=== PATIENT | male | born 1960 | race Caucasian/White ===

== ENCOUNTER 2020-06-04 01:42 | Outpatient (CLI) | payer BC, SELFPAY ==
[2020-06-04 10:15] LABS: Calculated LDL 123 mg/dL (<100); Cholesterol 202 mg/dL (<200); Glucose 91 mg/dL (74-106); HDL Cholesterol 41 mg/dL (40-60); Triglyceride 190 mg/dL (<150)
== END 2020-06-04 02:02 ==
PROVIDERS: PCP Family Medicine; Visit Provider Family Medicine
DX: E78.5 Hyperlipidemia, unspecified (principal)
CPT/HCPCS: 36415; 80061; 82947

== ENCOUNTER 2021-06-24 04:09 | Outpatient (CLI) | payer BC, SELFPAY ==
[2021-06-24 12:35] LABS: Calculated LDL 80 mg/dL (<100); Cholesterol 156 mg/dL (<200); HDL Cholesterol 41 mg/dL (40-60); Triglyceride 176 mg/dL (<150)
[2021-06-24 12:36] LABS: Hemoglobin A1C 5.2 % (<5.7)
[2021-06-24 21:51] LABS: PSA, Screening 1.7 ng/mL (0.0-4.5)
== END 2021-06-24 04:10 | disposition home or self-care (01) ==
LOC: LOS 04:09
PROVIDERS: PCP Nurse Practitioner Family; Visit Provider Nurse Practitioner Family
DX: E78.5 Hyperlipidemia, unspecified (principal); R35.0 Frequency of micturition; Z12.5 Encounter for screening for malignant neoplasm of prostate; Z13.1 Encounter for screening for diabetes mellitus
CPT/HCPCS: 36415; 80061; 84153; 83036

== ENCOUNTER 2022-07-04 03:59 | Outpatient (CLI) | payer BC, SELFPAY ==
[2022-07-04 13:12] LABS: Calculated LDL 95 mg/dL (<100); Cholesterol 190 mg/dL (<200); HDL Cholesterol 42 mg/dL (40-60); Triglyceride 268 mg/dL (<150)
== END 2022-07-04 04:00 | disposition home or self-care (01) ==
LOC: LOS 03:59
PROVIDERS: PCP Nurse Practitioner Family; Visit Provider Nurse Practitioner Family
DX: E78.5 Hyperlipidemia, unspecified (principal)
CPT/HCPCS: 36415; 80061

== ENCOUNTER 2023-07-13 08:28 | Outpatient (CLI) | payer BC, SELFPAY ==
[2023-07-13 10:13] LABS: Calculated LDL 107 mg/dL (<100); Cholesterol 188 mg/dL (<200); HDL Cholesterol 46 mg/dL (40-60); Triglyceride 179 mg/dL (<150)
== END 2023-07-13 08:29 | disposition home or self-care (01) ==
LOC: LBO 08:29
PROVIDERS: PCP Family Medicine; Visit Provider Nurse Practitioner Family
DX: E78.5 Hyperlipidemia, unspecified (principal)
CPT/HCPCS: 36415; 80061

== ENCOUNTER 2024-07-11 10:22 | Outpatient (CLI) | payer BC, SELFPAY ==
[2024-07-11 09:06] LABS: BUN 17 mg/dL (7-18); CREATININE 1.1 mg/dL (0.70-1.30); Calcium 8.5 mg/dL (8.5-10.1); Calculated LDL 99 mg/dL (<100); Chloride 103 mmol/L (98-107); Cholesterol 170 mg/dL (<200); Estimated GFR 75.43 (mL/min/1.73m2); Glucose 102 mg/dL (74-106); HDL Cholesterol 48 mg/dL (40-60); Potassium 4.2 mmol/L (3.5-5.1); Sodium 139 mmol/L (136-145); Triglyceride 119 mg/dL (<150)
[2024-07-11 23:18] LABS: PSA, Screening 4.8 ng/mL (<=4.5)
[2024-07-11 23:58] LABS: Hepatitis C Ab w Rflx HCV PCR Negative (Negative)
[2024-07-12 09:23] LABS: HIV-1/2 Ag & Ab Screen Negative (Negative)
== END 2024-07-11 10:23 | disposition home or self-care (01) ==
LOC: LBO 10:22
PROVIDERS: PCP Family Medicine; Visit Provider Family Medicine
DX: Z11.4 Encounter for screening for human immunodeficiency virus [HIV] (principal); Z12.5 Encounter for screening for malignant neoplasm of prostate; Z11.59 Encounter for screening for other viral diseases; Z13.6 Encounter for screening for cardiovascular disorders; E78.2 Mixed hyperlipidemia; Z13.1 Encounter for screening for diabetes mellitus
CPT/HCPCS: 36415; 80048; 80061; 84153; 86803; 87389

== ENCOUNTER 2024-12-19 02:01 | Outpatient (CLI) | payer BC, SELFPAY ==
[2024-12-19 08:33] LABS: Abs Immature Grans 0.01 10^3/uL (0.0-0.06); Absolute Basophil Count 0.03 10^3/uL (0.0-0.2); Absolute Eosinophil Count 0.07 10^3/uL (0.0-0.7); Absolute Lymphocyte Count 1.54 10^3/uL (1.2-3.4); Absolute Monocyte Count 0.32 10^3/uL (0.1-0.8); Absolute Neutrophil Count 1.52 10^3/uL (1.2-6.7); Basophils % 0.9 %; HCT 42.7 % (40.0-50.0); HGB 14.7 g/dL (13.5-17.5); Immature Grans % 0.3 %; Lymphocytes % 44.1 %; MCH 30.6 pg (27.0-33.0); MCHC 34.4 % (32.0-36.0); MCV 89 fL (80-95); Monocytes % 9.2 %; Neutrophils % 43.5 %; Platelet Count 141 10^3/uL (130-400); RDW 12.7 % (11.8-14.1); RDW-SD 41.8 fL; WBC 3.49 10^3/uL (4.4-10.8)
[2024-12-19 09:09] LABS: ALT 24 U/L (16-63); AST 24 U/L (15-37); Albumin 3.9 g/dL (3.4-5.0); Alkaline Phosphatase 62 U/L (46-116); Anion Gap 5.2 mmol/L (3-11); BUN 19 mg/dL (7-18); Bilirubin, Total 1.11 mg/dL (0.2-1.0); CO2 28.8 mmol/L (21.0-32.0); CREATININE 1.2 mg/dL (0.70-1.30); Calculated LDL 93 mg/dL (<100); Chloride 105 mmol/L (98-107); Cholesterol 170 mg/dL (<200); Estimated GFR 67.95 (mL/min/1.73m2); Glucose 103 mg/dL (74-106); HDL Cholesterol 59 mg/dL (40-60); Potassium 4.5 mmol/L (3.5-5.1); Sodium 139 mmol/L (136-145); Total Protein 6.7 g/dL (6.4-8.2); Triglyceride 92 mg/dL (<150)
[2024-12-20 09:34] LABS: PSA, Screening 2.5 ng/mL (<=4.5)
== END 2024-12-19 02:02 | disposition home or self-care (01) ==
PROVIDERS: PCP Family Medicine; Visit Provider Family Medicine
DX: Z12.5 Encounter for screening for malignant neoplasm of prostate (principal); R97.20 Elevated prostate specific antigen [PSA]; Z00.00 Encounter for general adult medical examination without abnormal findings; Z13.9 Encounter for screening, unspecified; Z13.6 Encounter for screening for cardiovascular disorders
CPT/HCPCS: 36415; 80053; 80061; 84153; 85025

== ENCOUNTER 2025-02-18 02:35 | Outpatient (CLI) | payer BC, SELFPAY ==
[2025-02-18 13:01] LABS: Abs Immature Grans 0.01 10^3/uL (0.0-0.06); Absolute Basophil Count 0.04 10^3/uL (0.0-0.2); Absolute Eosinophil Count 0.09 10^3/uL (0.0-0.7); Absolute Lymphocyte Count 1.52 10^3/uL (1.2-3.4); Absolute Monocyte Count 0.34 10^3/uL (0.1-0.8); Absolute Neutrophil Count 2.43 10^3/uL (1.2-6.7); Basophils % 0.9 %; HCT 39.7 % (40.0-50.0); HGB 13.9 g/dL (13.5-17.5); Immature Grans % 0.2 %; Lymphocytes % 34.3 %; MCH 30.8 pg (27.0-33.0); MCV 88 fL (80-95); MPV 10.1 fL (8.0-11.0); Monocytes % 7.7 %; Neutrophils % 54.9 %; Platelet Count 154 10^3/uL (130-400); RBC 4.51 10^6/uL (4.36-5.78); RDW 12.6 % (11.8-14.1); RDW-SD 40.9 fL; WBC 4.43 10^3/uL (4.4-10.8)
== END 2025-02-18 02:36 | disposition home or self-care (01) ==
LOC: LBO 02:35
PROVIDERS: PCP Family Medicine; Visit Provider Family Medicine
DX: D72.819 Decreased white blood cell count, unspecified (principal)
CPT/HCPCS: 36415; 85025

== ENCOUNTER 2025-05-08 12:06 | Outpatient (REF) | payer BC, SELFPAY ==
--- NOTE | 2025-05-08 16:10 | SKI_PTH ---
PATIENT: Nicolas Hamlin V LOC: [facility] U#:[id number] AGE/SX: 64/M ROOM: RE05/08/[address]: Yessenia Bhatti NP : 1960 BED: DIS: 05/08/2025 SPEC #: [id number] RECD: 05/09/25 12:26 STATUS: THOMAS REQ #: [id number] MANINDER: 05/08/25 16:[address]: Yessenia Bhatti DEPT: Surgical Specimen RECD BY: Grace Laughlin ENTERED: 05/09/25 12:27 SP TYPE: CHARITO MATHUR DR: Cleopatra Hernandez Tissues: 1 - SKIN BIOPSY(SHAVE/PUNCH) Procedures: SKIN LEVEL 4 Comments: [id number]
== END 2025-05-08 12:07 | disposition home or self-care (01) ==
LOC: LBN 12:06
PROVIDERS: PCP Family Medicine; Visit Provider Nurse Practitioner Family
DX: L98.8 Other specified disorders of the skin and subcutaneous tissue (principal); R21 Rash and other nonspecific skin eruption
CPT/HCPCS: 88305

== ENCOUNTER 2025-05-14 04:17 | Outpatient (CLI) | payer BC, SELFPAY ==
[2025-05-14 16:16] LABS: Calculated LDL 93 mg/dL (<100); Cholesterol 174 mg/dL (<200); HDL Cholesterol 46 mg/dL (>or=40); Triglyceride 178 mg/dL (<150)
[2025-05-14 22:11] LABS: CRP, High Sensitivity 6.73 mg/L (See Note)
[2025-05-15 11:22] LABS: Lyme Ab w Rflx to Lyme Confirm Negative (Negative)
[2025-05-17 15:10] LABS: B. miyamotoi PCR Negative (Negative); Babesia divergens/MO-1 Negative (Negative); Ehrlichia muris eauclairensis Negative (Negative)
== END 2025-05-14 04:18 | disposition home or self-care (01) ==
LOC: LBO 04:17
PROVIDERS: PCP Family Medicine; Visit Provider Nurse Practitioner Family
DX: Z13.6 Encounter for screening for cardiovascular disorders (principal); E78.2 Mixed hyperlipidemia; Z91.89 Other specified personal risk factors, not elsewhere classified; S30.861A Insect bite (nonvenomous) of abdominal wall, initial encounter; W57.XXXA Bitten or stung by nonvenomous insect and other nonvenomous arthropods, initial encounter
CPT/HCPCS: 80061; 83695; 86141; 87798; 86618